=== PATIENT | male | born 2000 | race Hispanic/Latino ===

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

== ENCOUNTER 2018-01-14 21:28 | Emergency (ER) | payer OTHER ==
[~2018-01-14 21:28] MED LIST: AMOXICILLIN875 M1 PO; BLEPH-105 ML OPH; IBUPROFEN800 M1 PO; PREDNISONE20 M1 PO
--- NOTE | 2018-01-14 22:49 | ED THROAT/DENTAL COMPLAINT ---
History of Present Illness General Chief Complaint: Sore Throat, Dental Pain Stated Complaint: SORE THROAT ?STREP, NEEDS NOTE TO RETURN TO WORK Source: patient Exam Limitations: no limitations Vital Signs & Intake/Output Vital Signs & Intake/Output Vital Signs Date Time Temp Pulse Resp B/P B/P Pulse O2 O2 Flow FiO2 Mean Ox Delivery Rate 01/14 2250 97.8 77 16 124/81 99 Room Air 01/14 2130 96.9 76 16 120/71 96 Room Air ED Intake and Output 01/15 0000 01/14 1200 Intake Total 0 Output Total Balance 0 Intake, Oral 0 Patient 163 lb Weight Weight Reported by Patient Measurement Method Allergies Coded Allergies: NO KNOWN ALLERGIES (10/12/14) Reconcile Medications Amoxicillin 875 MG TABLET 1 TAB PO BID tonsillitis Ibuprofen 800 MG TABLET 1 TAB PO Q6PRN PRN pain [MAGIC MOUTHWASH] 10 ML PO TID PRN PHARYNGITIS 1:1:1 EQUAL PARTS SWISH AND SWALLOW Meloxicam (Mobic) 15 MG TABLET 1 TAB PO DAILY PRN PAIN INFLAMMATION Prednisone 20 MG TABLET 1 TAB PO BID tonsillitis Sulfacetamide Sodium (Bleph-10) 10 % DROPS 2 GTT OPH 4 TIMES/DAY conjunctivitis Triage Note: PT TO ED WITH C/O SORE THROAT X 1 WEEK. REPORTS SUBJECTIVE FEVERS. Triage Nurses Notes Reviewed? yes Onset: Gradual Duration: constant Timing: recent history Injury Environment: home Severity: severe Severity Numbers: 7 HPI: Patient is a 18-year-old male who presents emergency with a 3 day history of cough nasal congestion and sore throat. Patient has been taking NyQuil with minimal relief of symptoms. Denies any chest pain on and off pain your pain neck pain or headache Patient can tolerate by mouth (Virgilio Horan) Past History Travel History Traveled to [place] past 21 day No Medical History Any Pertinent Medical History? none Surgical History Surgical History: non-contributory Psychosocial History What is your primary language [place] Tobacco Use: Never used Family History Hx Contributory? No (Virgilio Horna) Review of Systems Review of Systems Constitutional: Reports: see HPI. EENTM: Reports: see HPI, nasal congestion, throat pain, throat swelling. Respiratory: Reports: see HPI, cough. Cardiovascular: Reports: no symptoms. GI: Reports: no symptoms. Genitourinary: Reports: no symptoms. Musculoskeletal: Reports: no symptoms. Skin: Reports: no symptoms. Neurological/Psychological: Reports: no symptoms. Hematologic/Endocrine: Reports: no symptoms. Immunologic/Allergic: Reports: no symptoms. All Other Systems: Reviewed and Negative (Virgilio Horan) Physical Exam Physical Exam General Appearance: no apparent distress, alert, comfortable Head: atraumatic Eyes: Bilateral: normal appearance. Ears: Bilateral: canal normal, Tympanic normal. Nose: normal inspection Mouth/Throat: normal mouth inspection Neck: normal inspection Cardiovascular/Respiratory: normal breath sounds, normal peripheral pulses, regular rate/rhythm Neurologic/Psych: no motor/sensory deficits, awake Skin: intact, warm/dry Comments: Oropharynx noted pharyngeal erythema no exudates Core Measures ACS in differential dx? No Sepsis Present: No Sepsis Focused Exam Completed? No (Virgilio Horan) Progress Differential Diagnosis: epiglottitis, Ludwigs angina, meningitis, odontogenic abscess, reinaldo-tonsillar abscess, pharyngeal for. body, stomatitis/gingivitis, strep pharyngitis, tooth fracture Plan of Care: Orders Procedure Date/time Status THROAT CULTURE W/QUICK STREP 01/15 2132 Active Patient's Centor criteria is 0 rapid strep was negative patient will be treated for concerns of viral syndrome (Virgilio Horan) Departure Departure Disposition: HOME OR SELF CARE Condition: Stable Clinical Impression Primary Impression: Pharyngitis Secondary Impressions: Viral syndrome Referrals: Unknown (PCP/Family) Additional Instructions: As discussed in the prescription of Magic mouthwash for sore throat and meloxicam for pain and inflammation, if no better in 3 days follow-up with her doctor. IF symptoms worsen return to emergency. Prescription is waiting a [facility] Departure Forms: Customer Survey General Discharge Information Prescriptions: Current Visit Scripts [MAGIC MOUTHWASH] 10 ML PO TID PRN PHARYNGITIS #100 ML 1:1:1 EQUAL PARTS SWISH AND SWALLOW Meloxicam (Mobic) 1 TAB PO DAILY PRN PAIN INFLAMMATION #7 TAB (Virgilio Horan) PA/FAMILY COACH Co-Sign Statement Statement: ED Attending supervision documentation- [] I saw and evaluated the patient. I have also reviewed all the pertinent lab results and diagnostic results. I agree with the findings and the plan of care as documented in the PA's/FAMILY COACH's documentation. [x] I have reviewed the ED Record and agree with the PA's/FAMILY COACH's documentation. [] Additions or exceptions (if any) to the PAs/FAMILY COACH's note and plan are summarized below: [] (Arcadio PHELAN,Juanito Blandon)
[2018-01-14 22:50] VITALS: BP 124/81
[2018-01-14] MEDS ORDERED: MOBIC15 M1 PO (22:51)
[2018-01-14] MEDS ORDERED: MAGIC MOUTHWASH PO (22:51)
== END 2018-01-14 23:16 ==
LOC: ERH 21:28
DX: J02.9 Acute pharyngitis, unspecified (principal); B34.9 Viral infection, unspecified